=== PATIENT | male | born 1990 | race Caucasian/White ===

== ENCOUNTER 2024-03-28 14:34 | Outpatient (AMB) | payer OTHER, SELFPAY ==
--- NOTE | 2024-03-28 15:01 | A.OFFPC_ITS ---
Vital Signs 03/28/24 15:05 Height 6 ft 1 in Weight 222 lb BMI 29.3 BP 128/70 Blood Pressure Location Lt brachial Position Sitting Respiration 14 Pulse 91 Pulse Source Pulse Oximeter Temp 98.1 F Temp Source Oral Pulse Oximetry (%) 98 Oxygen Delivery Method Room Air Intake Visit Reasons: Office visit Intake Note: establish care Allergies No Known Allergies Allergy (Verified 03/28/24 15:01) Tobacco use date assessed: 03/28/24 Dental Screening Dental Screen Date: 03/28/24 Did you have a dental visit in the last 12 months?: Yes Did you have a dental problem in the last 6 months where you did not have access to dental care?: No Was dental information given to patient?: Patient has dentist HPI Office visit HPI Details New Patient? ?? Prior PCP:?Dr Baig Last office visit/CPE:? Age 21 Acute issue(s):? Cough Associated w/ cold Difficulty concentrating age 10 to 18 had been treated w/ ritalin or adderall. Abnormal urine color ?? PMHx:? Pt states hx or ADHD (Awaiting establish dx), Prior PSY admission. SurgHx:?None FHx:? Mom: White matter neurologic disorder and h/o concussions. Dad: Substance use. SocHx:? Nonsmoker. EtOH very rare 1-2 dr a month. No drugs HPI Comments History of Present Illness Details Documentation assistance for Ben Higuera MD, was provided by Kurt Henson,? Seed Expert on 03/28/2024 at 3:57 PM EST. I, Dr. Higuera, have read, observed, and verified documentation. 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 1. Little interest or pleasure in doing things: not at all 2. Feeling down, depressed, or hopeless: not at all 3. Trouble falling or staying asleep, or sleeping too much: not at all 4. Feeling tired or having little energy: several days 5. Poor appetite or overeating: several days 6. Feeling bad about yourself - or that you are a failure or have let yourself or your family down: not at all 7. Trouble concentrating on things, such as reading the newspaper or watching television: not at all 8. Moving or speaking so slowly that other people could have noticed. Or the opposite - being so fidgety or restless that you have been moving around a lot more than usual: not at all 9. Thoughts that you would be better off or of hurting yourself in some way: not at all Total score: 2 Depression Screening Interpretation: Negative Depression Screening Done: Yes 29685 - PHQ-9 Billing: Yes Source: Developed by Drs. Ari Ramsay, Luz Hill, Jose David Seymour and colleagues, with an educational sarwat from [employer]. Thrive Questionnaire Date Thrive assessed: 03/28/24 I am a: Patient What is your living situation today?: I have a steady place to live Within the past 12 months, did the food you bought not last and you didn't have the money to get more?: Never true Within the past 12 months, did you worry whether your food would run out before you got money to buy more?: Never true Do you have trouble paying for medicines?: No Do you have trouble getting transportation to medical appointments?: No Do you have trouble paying your heating and electricity bill?: No Do you have trouble taking care of your child, family member or friend?: No Do you have trouble with day-to-day activities such as bathing, preparing meals, shopping, managing finances, etc.?: No Are you currently unemployed and looking for a job?: No Are you interested in more education?: No Please select the resources that you would like help with: None Currently or been in a relationship where the following occur: No concerns reported THRIVE Score: 0 AUDIT C Alcohol Use Questionnaire (AUDIT-C) 1. How often do you have a drink containing alcohol?: Monthly or less 2. How many drinks containing alcohol do you have on a typical day when you are drinking?: 1 or 2 3. How often do you have six or more drinks on one occasion?: Never Total Score: 1 ROMMEL-7 AMB Questionnaire ROMMEL-7 Date ROMMEL - 7 assessed: 03/28/24 Feeling nervous, anxious, or on edge: 0 = Not at all Not being able to stop or control worryin = Not at all Worrying too much about different things: 0 = Not at all Trouble relaxin = Not at all Being so restless that it is hard to sit still: 0 = Not at all Becoming easily annoyed or irritable: 1 = Several days Feeling afraid as if something awful might happen: 0 = Not at all Total ROMMEL-7 score (0-4 normal; 5-9 mild; 10-14 moderate; 15-21 severe): 1 Source: Developed by Drs. Ari Ramsay, Luz Hill, Jose David Seymour and colleagues, with an educational sarwat from [employer]. ROMMEL-7 Assessment Billing ROMMEL-7 Assessment Tool: ROMMEL-7 Assessment 59094 Review of Systems Const Denies chills, Denies fatigue, Denies fever(s), Denies headache(s) and Denies weakness ENT Denies dizziness and Denies headache(s) Card Denies chest pain, Denies lightheadedness, Denies dyspnea and Denies other (Palpitations) Resp Denies cough, Denies dyspnea, Denies wheezing and Denies other ( shortness of breath) Musc Denies numbness and Denies tingling Neuro Denies dizziness, Denies headache(s), Denies numbness, Denies tingling, Denies paresthesias and Denies weakness Psych Denies anxiety and Denies depression Endo Denies fatigue Aller/Immun Denies wheezing Physical exam (Primary Care) Vital Signs: Last Vital Signs Temp 98.1 F 03/28/24 15:05 Pulse 91 03/28/24 15:05 Resp 14 03/28/24 15:05 BP 128/70 03/28/24 15:05 Pulse Ox 98 03/28/24 15:05 Oxygen Delivery Method Room Air 03/28/24 15:05 BMI result Body Mass Index 29.3 Tobacco/Smoking Status: Tobacco use Status Tobacco use date assessed 03/28/24 03/28/24 15:10 Patient Tobacco Use Status Never used Tobacco 03/28/24 15:10 e-Cigarette/Vaping Use Never Used 03/28/24 15:10 PHQ-9: PHQ-9 Score PHQ-9: Total score 2 03/28/24 15:57 Depression Screening Interpretation: Negative Thrive Assessment: Date of Thrive Assessment Date Thrive assessed 03/28/24 03/28/24 15:10 Currently or been in a relationship where the following occur: No concerns reported Const General: no acute distress and well developed Nutritional Appearance: well nourished Orientation/consciousness: patient oriented x3 HENMT Head: Yes normocephalic and Yes atraumatic Eyes General: appearance normal, both eyes and all related structures Pupils: Equal, round and reactive pupils present EOM: EOMs intact bilaterally Resp Effort & Inspection: normal respiratory effort Auscultation: clear to auscultation bilaterally Cardio Rate: regular rate Rhythm: regular rhythm Heart sounds: S1 normal heart sound present, S2 normal heart sound present, no gallops, no murmurs and no rubs Neuro General: patient oriented x3 and gait normal Cranial nerves: Yes Equal, round and reactive pupils present Psych Affect: normal affect Coding Level of Care Code New Pt Level 3 (05125) Diagnoses Cough R05.9 Abnormal urine color R39.89 Difficulty concentrating R41.840 Laboratory exam ordered as part of routine general medical examination Z00.00 Additional Codes ROMMEL-7 Assessment Billing - ROMMEL-7 Assessment Tool: ROMMEL-7 Assessment 67593 ([id number]) PHQ-9 - 66510 - PHQ-9 Billing: Yes ([id number]) Assessment & Plan Assessment & Plan (1) Cough: Code(s): R05.9 - Cough, unspecified Category: Medical Plan: Many?years?of?cough?during?cold?months Likely?cough?induced?asthma Trial?albuterol?inhaler (2) Abnormal urine color: Code(s): R39.89 - Other symptoms and signs involving the genitourinary system Category: Medical Plan: Patient?notes?some?abnormal?urine?color?and?odor?with?certain?foods. Checking?labs Hydrate?well (3) Difficulty concentrating: Code(s): R41.840 - Attention and concentration deficit Category: Medical Plan: Patient?has?difficulty?concentrating?and?notes?that?he?was?treated?for?ADHD?as?c hild. No?recent?treatment?as?adult Referred?to?[facility]?outpatient?psychiatric?consult?team?to?evaluate (4) Laboratory exam ordered as part of routine general medical examination: Code(s): Z00.00 - Encounter for general adult medical examination without abnormal findings Category: Medical Plan: Check?labs Orders: Orders Complete Blood Count Auto Diff Today R05.9 - Cough, unspecified, Z00.00 - Encounter for general adult medical examination without abnormal findings Comprehensive [place]. Panel Fast Today Z00.00 - Encounter for general adult medical examination without abnormal findings Lipid Panel Today Z00.00 - Encounter for general adult medical examination without abnormal findings Microalbumin, Random (w Creat) Today I10 - Essential (primary) hypertension TSH reflex Free T4 Today Z00.00 - Encounter for general adult medical examination without abnormal findings UA and rflx microscopic Today Z00.00 - Encounter for general adult medical examination without abnormal findings Syphilis Screen Today Z11.3 - Encounter for screening for infections with a predominantly sexual mode of transmission CT NG by PCR Today Z11.3 - Encounter for screening for infections with a predominantly sexual mode of transmission HIV Ab/Ag Today Z11.3 - Encounter for screening for infections with a predominantly sexual mode of transmission Hepatitis B,C Profile Today Z11.3 - Encounter for screening for infections with a predominantly sexual mode of transmission Referrals Psychiatry Outpatient Consultation Service R41.840 - Attention and concentration deficit
[2024-03-28 15:05] VITALS: BP 128/70; PULSE 91; RESP 14; TEMP 36.7; O2SAT 98; BMI 29.3
== END 2024-03-28 16:37 | disposition home or self-care (01) ==
PROVIDERS: PCP Family Medicine; Visit Provider Family Medicine
DX: R05.9 Cough, unspecified (principal); R39.89 Other symptoms and signs involving the genitourinary system; R41.840 Attention and concentration deficit; Z00.00 Encounter for general adult medical examination without abnormal findings

== ENCOUNTER → 2024-03-28 14:34 | Outpatient (BNVA) | payer OTHER, SELFPAY | PROVIDERS: PCP Family Medicine; Visit Provider Family Medicine | DX: R05.9 Cough, unspecified (principal); R39.89 Other symptoms and signs involving the genitourinary system; R41.840 Attention and concentration deficit | CPT/HCPCS: 96127 ==

== ENCOUNTER 2024-04-11 14:56 | Outpatient (AMB) | payer OTHER, SELFPAY ==
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
== END 2024-04-11 16:11 | disposition home or self-care (01) ==
LOC: HO.HOP 14:56
PROVIDERS: PCP Family Medicine; Visit Provider Clinical Nurse Specialist Psychiatric/Mental Health
DX: F98.8 Other specified behavioral and emotional disorders with onset usually occurring in childhood and adolescence (principal)
CPT/HCPCS: 90792

== ENCOUNTER → 2024-04-11 14:56 | Outpatient (BNVA) | payer OTHER, SELFPAY | PROVIDERS: PCP Family Medicine; Visit Provider Clinical Nurse Specialist Psychiatric/Mental Health | DX: R41.840 Attention and concentration deficit (principal); F98.8 Other specified behavioral and emotional disorders with onset usually occurring in childhood and adolescence | CPT/HCPCS: 90792 ==

== ENCOUNTER 2024-04-11 16:15 | Outpatient (REF) | payer OTHER, SELFPAY ==
[2024-04-11 16:34] LABS: MANUAL DIFF FLAG NO
[2024-04-11 17:11] LABS: Basophils Percent Auto 0.8 % (0-2); Eosinophils Absolute Auto 0.2 X10*3/uL (0.0-0.4); Eosinophils Percent Auto 3.6 % (0-4); Hematocrit 43.9 % (42.0-52.0); Hemoglobin 14.9 g/dl (14.0-18.0); Imm Gran Abs Auto 0.01 X10*3/uL (0.00-0.03); Imm Gran Pct Auto 0.2 % (0.0-0.4); Lymphocytes Absolute Auto 1.6 X10*3/uL (1.2-4.9); Lymphocytes Percent Auto 31.8 % (20-40); Mean Corpuscular HGB Conc 33.9 g/dl (31.0-36.0); Mean Corpuscular Hemoglobin 29.5 pg (27.0-33.0); Mean Corpuscular Volume 86.9 fL (80.0-98.0); Mean Platelet Volume 8.9 fL (9.4-12.4); Monocytes Absolute Auto 0.4 X10*3/uL (0.1-1.2); Monocytes Percent Auto 8.4 % (2-11); Neutrophils Absolute Auto 2.8 x10*3/uL (2.0-8.3); Neutrophils Percent Auto 55.2 % (45-73); Platelet Count 288 X10*3/uL (160-400); Red Blood Count 5.05 X10*6/uL (4.60-5.80); Red Cell Distribution Width 13.6 % (11.0-16.0)
[2024-04-11 18:03] LABS: Alanine Aminotransferase 22 U/L (0-40); Albumin Level 4.5 g/dL (3.5-5.0); Alkaline Phosphatase 49 U/L (39-117); Anion Gap 15 (12-20); Aspartate Amino Transferase 25 U/L (5-37); Bilirubin Total 1.6 mg/dL (0.0-1.0); Blood Urea Nitrogen 14 mg/dL (9-16); Calcium 9.7 mg/dL (8.4-10.2); Carbon Dioxide 27 mmol/L (22-29); Chloride 106 mmol/L (96-108); Cholesterol 167 mg/dL (<200); Estimated Glomerular Filt Rate > 60; Glucose Fasting 91 mg/dL (60-99); HDL Cholesterol 52 mg/dL (>40); LDL Cholesterol Calculated 103 mg/dL (<100); Potassium 3.6 mmol/L (3.3-5.1); Sodium 144 mmol/L (135-145); Total Protein 7.5 g/dL (6.5-8.0); Triglycerides 60 mg/dL (<150)
[2024-04-11 18:09] LABS: TSH reflex Free T4 0.56 uIU/mL (0.32-4.0)
[2024-04-11 18:21] LABS: Vitamin B12 417 pg/mL (200-900)
[2024-04-12 04:06] LABS: HBS Num1 0.56 mIU/mL (0-7.99); HBc Num1 0.18 S/CO (0.00-0.79); HBsAGNum1 0.49 S/CO (0.00-0.99); HIV AB/AG Nonreactive (Nonreactive); HIV Num 1 0.06 S/CO (0.00-0.99); Hepatitis B Core Antibody Nonreactive (Nonreactive); Hepatitis B Surface Antigen Negative (Negative); Syphilis Screen Nonreactive (Nonreactive); ~HepC Num1 0.22 S/CO (0.00-0.79); ~Hepatitis B Surface Antibody NONREACTIVE (Nonreactive); ~Hepatitis C Antibody Nonreactive (Nonreactive)
[2024-04-15 15:27] LABS: Vitamin D 25-OH, D2 <4 ng/mL; Vitamin D 25-OH, D3 21 ng/mL; Vitamin D 25-OH, Total 21 ng/mL (30-100)
[2024-04-15 18:02] LABS: Vitamin B1 16 nmol/L (8-30)
[2024-04-16 14:39] LABS: Vitamin B6 11.2 ng/mL (2.1-21.7)
== END 2024-04-11 16:16 | disposition home or self-care (01) ==
LOC: HO.LAB 16:15
PROVIDERS: PCP Family Medicine; Referring Provider Clinical Nurse Specialist Psychiatric/Mental Health; Visit Provider Family Medicine
DX: Z00.00 Encounter for general adult medical examination without abnormal findings (principal); R05.9 Cough, unspecified; Z11.3 Encounter for screening for infections with a predominantly sexual mode of transmission; R41.840 Attention and concentration deficit
CPT/HCPCS: 36415; 80053; 80061; 82306; 82607; 82746; 84207; 84425; 84443; 85025; 86704; 86706; 86780; 86803; 87340; 87389

== ENCOUNTER → 2024-05-09 14:43 | Outpatient (BNVA) | payer OTHER, SELFPAY | PROVIDERS: PCP Family Medicine; Visit Provider Clinical Nurse Specialist Psychiatric/Mental Health | DX: R41.840 Attention and concentration deficit (principal) ==

== ENCOUNTER 2024-07-07 10:58 | Outpatient (AMB) | payer OTHER, SELFPAY ==
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
== END 2024-07-07 11:37 | disposition home or self-care (01) ==
LOC: HO.HOP 10:58
PROVIDERS: PCP Family Medicine; Visit Provider Clinical Nurse Specialist Psychiatric/Mental Health
DX: F98.8 Other specified behavioral and emotional disorders with onset usually occurring in childhood and adolescence (principal)
CPT/HCPCS: 99214

== ENCOUNTER → 2024-07-07 10:58 | Outpatient (BNVA) | payer OTHER, SELFPAY | PROVIDERS: PCP Family Medicine; Visit Provider Clinical Nurse Specialist Psychiatric/Mental Health ==

== ENCOUNTER 2024-08-11 09:55 | Outpatient (AMB) | payer OTHER, SELFPAY ==
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
== END 2024-08-11 10:46 | disposition home or self-care (01) ==
LOC: HO.HOP 09:55
PROVIDERS: PCP Family Medicine; Visit Provider Clinical Nurse Specialist Psychiatric/Mental Health
DX: F90.0 Attention-deficit hyperactivity disorder, predominantly inattentive type (principal)
CPT/HCPCS: 99214

== ENCOUNTER → 2024-08-11 09:55 | Outpatient (BNVA) | payer OTHER, SELFPAY | PROVIDERS: PCP Family Medicine; Visit Provider Clinical Nurse Specialist Psychiatric/Mental Health ==